=== PATIENT | female | born 1965 | race African-American/Black ===

== ENCOUNTER 2022-08-14 11:06 | Outpatient (REF) | payer OTHER, SELFPAY ==
[2022-08-14 14:23] LABS: Thyroid Stimulating Hormone 2.58 uIU/mL (0.32-4.0)
== END 2022-08-14 11:07 | disposition home or self-care (01) ==
LOC: HO.10HDL 11:06
PROVIDERS: Visit Provider Internal Medicine
DX: E03.8 Other specified hypothyroidism (principal); E78.00 Pure hypercholesterolemia, unspecified; I10 Essential (primary) hypertension; Z91.14 Patient's other noncompliance with medication regimen
CPT/HCPCS: 36415; 84443

== ENCOUNTER 2025-08-20 09:57 | Outpatient (REF) | payer OTHER, SELFPAY ==
--- OUTSIDE RECORDS SUMMARY | 2025-08-20 11:33 | XMS_ITS | Clinical Summary ---
Author Organization [address] Address [address] [place] [address] Phone Care Team Providers Care Drama Therapist Name Role Phone Fifi Robins MD Primary Care Provider [phone] Surgical History Surgery Date Site/Laterality Comments TOTAL KNEE ARTHROPLASTY 02/26/2017 Right PROCEDURE: HISTORICAL TOTAL KNEE REPLACE TUBAL LIGATION PROCEDURE: HISTORICAL TUBAL LIGATION HYSTERECTOMY 11/27/2011 PROCEDURE: HISTORICAL HYSTERECTOMY Medical History Medical History Date Comments Depression DX:Depression Hyperlipidemia DX:Hyperlipidemi a Hypothyroidism DX:Hypothyroidis m Morbid obesity (CMS/HCC V24, CMS/HCC V28) DX:Morbid obesity (HCC) Essential (primary) hypertension DX:Essential (primary) hypertension Social History Tobacco Use Types Packs/Day Years Used Date Smoking Tobacco: Former Smokeless Tobacco: Former Alcohol Use Standard Drinks/Week Comments Never 0 (1 standard drink = 0.6 oz pur e alcohol) Comments Unknown Sex and Gender Information Value Date Recorded Sex Assigned at Not on file Legal Sex Female 8:17 PM EST Gender Identity Not on file Sexual Orientation Not on file Obstetrics History Last Filed Vital Signs Vital Sign Reading Time Taken Comments Blood Pressure 117/74 05/23/2022 3:12 PM EDT Pulse 69 05/23/2022 3:12 PM EDT Temperature - - Respiratory Rate - - Oxygen Saturation - - Inhaled Oxygen Concentration - - Weight 104 kg (230 lb 1.3 oz) 05/23/2022 3:12 PM EDT Height 160 cm (5' 3 ) 05/23/2022 3:12 PM EDT Body Mass Index 40.76 05/23/2022 3:12 PM EDT Plan of Treatment Health Maintenance Due Date Last Done Comments Colorectal Cancer Screening: Colonoscopy 1965 DTaP,Tdap,and Td Vaccines (1 - Tdap) 02/18/1983 Cervical Cancer Screening: P ap Smear 02/18/1985 Pneumococcal Vaccine: 50+ Years (1 of 1 - PCV) 02/18/2014 Zoster Vaccines (1 of 2) 02/18/2014 HIV Screening 09/30/2022 Hepatitis C Screening 09/30/2022 Social Influencers of Health Screening 09/30/2022 Depression Screening 10/29/2024 COVID-19 Vaccine (2 - 2024-2 6 season) 2025 01/25/2021 Influenza Vaccine (#1) 2025 Breast Cancer Screening 08/13/2025 08/13/20, 12/08/2021, 08/16/2020 Cholesterol Screening (Lipid Panel) 10/16/2029 10/16/2024 RSV Immunization Adult Patients (1 - 1-dose 75+ series) 02/18/2039 HIB Vaccines Aged Out No longer eligi ble based on patient's age to complete this topic HPV Vaccines Aged Out No longer eligi ble based on patient's age to complete this topic Hepatitis A Vaccines Aged Out No long er eligible based on patient's age to complete this topic Hepatitis B Vaccines Aged Out No long er eligible based on patient's age to complete this topic IPV Vaccines Aged Out No longer eligi ble based on patient's age to complete this topic MMR Vaccines Aged Out No longer eligi ble based on patient's age to complete this topic Meningococcal ACWY Vaccine Aged Out N o longer eligible based on patient's age to complete this topic Meningococcal B Vaccine Aged Out No l onger eligible based on patient's age to complete this topic RSV Immunization Patients Under 20 months Aged Out No longer eligible b ased on patient's age to complete this topic Varicella Vaccines Aged Out No longer eligible based on patient's age to complete this topic Procedures Procedure Name Priority Date/Time Associated Diagnosis Comments LIPID PANEL WITH REFLEX TO DIRECT LDL Routine 10/16/2024 8:54 AM EST Myxedema heart disease Obesity, unspecified Pure hypercholesterolemi a Major depressive disorder, single episode, unspecified Essential hypertension, malignant Intertrigo Pain medication agreement broken ALLISON SCREENING DIGITAL Routine 08/13/2023 11:44 AM EDT Encounter for screening mammogram for malignant neoplasm of breast from Last 3 Months or Most Recently Relevant to Health Maintenance Results * (ABNORMAL) Lipid panel with reflex to direct LDL (10/16/2024 8:54 AM EST) Cholesterol 203(H) 0 - 200 mg/dL LAB CHEMISTRY METHOD 10/16/2024 11:40 AM EST [facility] Triglycerides 81 0 - 150 mg/dL LAB CHEMISTRY METHOD 10/16/2024 11:40 AM EST [facility] HDL 57 >=40 mg/dL LAB CHEMISTRY METHOD 10/16/2024 11:40 AM EST [facility] LDL Calculated 130(H) 0 - 100 mg/dL LAB CHEMISTRY METHOD 10/16/2024 11:40 AM EST [facility] VLDL Cholesterol Nick 16.2 mg/dL LAB CHEMISTRY METHOD 10/16/2024 11:40 AM EST [facility] Non HDL Chol. (LDL+VLDL) 146(H) <145 mg/dL LAB CHEMISTRY METHOD 10/16/2024 11:40 AM EST [facility] Chol/HDL Ratio 3.6 0.0 - 4.4 LAB CHEMISTRY METHOD 10/16/2024 11:40 AM EST [facility] Blood Venous blood specimen / Unknown Venipuncture / Unknown 10/16/2024 8:54 AM EST 10/16/2024 10:46 AM EST us Fifi Robins MD LAB BLOOD ORDERABLES Final Re sult [facility] [address] [place] [address], [place] [phone] * ALLISON SCREENING DIGITAL (08/13/2023 11:44 AM EDT) Anatomical Region Laterality Modality Mammography 08/13/2023 8:09 AM EDT Narrative 08/13/2023 11:44 AM EDT [facility] Diagnostic Imaging Department [address] [place] [address] Patient: CONNIE VASQUEZ /Age/Sex: 1965 - 58 - F Unit#: [id number] Location/Status: SPDIMAM/REG CLI Mnemonic/Ordering Site: [facility] Ordering Physician: FIFI ROBINS MD [facility] Screening Digital - 08/13/23824 Report Status:Signed EXAM: [facility] Screening Digital EXAM DATE AND TIME: 08/13/2023 8:25 AM HISTORY: Screening. Right breast biopsy in 2011, pathology benign. COMPARISON: 12/08/21, 08/16/20, 08/08/18, to 617, 04/05/12 TECHNIQUE: Bilateral digital breast tomosynthesis was performed in the CC and MLO projections. Computer aided detection with [employer] original products 3D 3.1 was empl oyed. TISSUE DENSITY: b. There are scattered areas of fibroglandular density. FINDINGS: No suspicious masses, grouped microcalcifications, or areas of architectural distortion are seen. A 17 mm circumscribed nodule with central fat attenuation remains long-term stable in the upper outer left breast, middle depth, considered benign. Few benign rim calcifications are again seen. A biopsy marker is present in the upper outer right breast. The skin and vascularity are unremarkable. IMPRESSION: Stable mammographic appearance of the breasts. No evidence of malignancy is seen. A negative mammogram in the presence of a clinically suspicious palpable abnormality does not preclude the possibility of malignancy or alter the indications for biopsy. BI-RADS: Category 2: Benign RECOMMENDATION(S): 1: Routine screening mammogram BILATERAL in 1 year. Dictating Physician: LORRIE FITZPATRICK MD Electronically Signed by: LORRIE FITZPATRICK MD Dic Date/Time: 08/13/23 1144 Sign date/Time: 08/13/23 1144 Procedure Note Lorrie Fitzpatrick MD - 12/04/2023 [facility] Diagnostic Imaging Department [address] [place] [id number] Patient: CONNIE VASQUEZ Roslyn Hall/Age/Sex: 1965 - 58 - F Unit#: [id number] [facility]onic/Ordering Site: [facility] Ordering Physician: FIFI ROBINS MD [facility] Screening Digital - 08/13/23 - 25 Report Status:Signed EXAM: [facility] Screening Digital EXAM DATE AND TIME: 08/13/2023 8:25 AM HISTORY: Screening. Right breast biopsy in 2011, pathology benign. COMPARISON: 12/08/21, 08/16/20, 08/08/18, to 617, 04/05/12 TECHNIQUE: Bilateral digital breast tomosynthesis was performed in the CCand MLO projections. Computer aided detection with [employer] 3D 3.1 wasempl oyed. TISSUE DENSITY: b. There are scattered areas of fibroglandular density. FINDINGS: No suspicious masses, grouped microcalcifications, or areas ofarchitectural distortion are seen. A 17 mm circumscribed nodule with central fatattenuation remains long-term stable in the upper outer left breast, middle depth, considered benign. Few benign rim calcifications are again seen. A biopsymarker is present in the upper outer right breast. The skin and vascularity are unremarkable. IMPRESSION: Stable mammographic appearance of the breasts. No evidence of malignancyis seen. A negative mammogram in the presence of a clinically suspicious palpable abnormality does not preclude the possibility of malignancy or alter the indications for biopsy. BI-RADS: Category 2: Benign RECOMMENDATION(S): 1: Routine screening mammogram BILATERAL in 1 year. Dictating Physician: LORRIE FITZPATRICK MD Electronically Signed by: LORRIE FITZPATRICK MD Dic Date/Time: 08/13/23 1144 Sign date/Time: 08/13/23 114 Fifi Robins MD IMG BI PROCEDURES Final Resul t from Last 3 Months or Most Recently Relevant to Health Maintenance Insurance [employer] Care Teams Drama Therapist Relationship Specialty Start Date End Date Fifi Robins MD [address] PCP - General Internal Medicine 10/29/11
[2025-08-20 13:11] LABS: MANUAL DIFF FLAG NO
[2025-08-20 13:27] LABS: Hematocrit 39.7 % (37.0-47.0); Hemoglobin 12.7 g/dl (12.0-16.0); Imm Gran Abs Auto 0.03 X10*3/uL (0.00-0.03); Imm Gran Pct Auto 0.6 % (0.0-0.4); Lymphocytes Absolute Auto 1.9 X10*3/uL (1.2-4.9); Mean Corpuscular HGB Conc 32.0 g/dl (31.0-35.0); Mean Corpuscular Hemoglobin 28.7 pg (27.0-33.0); Mean Corpuscular Volume 89.6 fL (80.0-98.0); NRBC Abs Auto 0.000 X10*3/uL (0.0-0.012); NRBC Pct Auto 0.0 /100WBC (0.0-0.2); Platelet Count 306 X10*3/uL (160-400); Red Blood Count 4.43 X10*6/uL (4.20-5.50); White Blood Count 4.7 X10*3/uL (4.8-10.8)
[2025-08-20 13:53] LABS: Alanine Aminotransferase 58 U/L (0-31); Albumin Level 3.9 g/dL (3.5-5.0); Alkaline Phosphatase 154 U/L (39-117); Anion Gap 10 (12-20); Aspartate Amino Transferase 54 U/L (5-31); Blood Urea Nitrogen 10 mg/dL (9-16); Calcium 9.2 mg/dL (8.4-10.2); Carbon Dioxide 29 mmol/L (22-29); Chloride 106 mmol/L (96-108); Cholesterol 266 mg/dL (<200); Estimated Glomerular Filt Rate 52; HDL Cholesterol 50 mg/dL (>40); Potassium 4.1 mmol/L (3.3-5.1); Sodium 141 mmol/L (135-145); Thyroid Stimulating Hormone 11.57 uIU/mL (0.32-4.0); Total Protein 7.7 g/dL (6.5-8.0); Triglycerides 123 mg/dL (<150)
== END 2025-08-20 09:58 | disposition home or self-care (01) ==
LOC: HO.10HDL 09:57
PROVIDERS: Visit Provider Internal Medicine
DX: H92.02 Otalgia, left ear (principal); I10 Essential (primary) hypertension; E66.01 Morbid (severe) obesity due to excess calories; E03.9 Hypothyroidism, unspecified
CPT/HCPCS: 36415; 80053; 80061; 84443; 85025